=== PATIENT | female | born 1990 | race American Indian/Alaskan Native ===

== ENCOUNTER 2017-04-28 01:18 | Emergency (ER) | payer OTHER ==
[2017-04-28 01:38] VITALS: BP 145/97; PULSE 92; RESP 16; TEMP 99; O2SAT 100
--- NOTE | 2017-04-28 02:14 | C.PDOC ---
Time Seen by Provider: 04/28/17 02:06 Chief Complaint (Nursing): Headache Past Medical History Vital Signs: Last Vital Signs Temp 99 F 04/28/17 01:27 Pulse 92 H 04/28/17 01:27 Resp 16 04/28/17 01:27 BP 145/97 H 04/28/17 01:27 Pulse Ox 100 04/28/17 01:27 - Social History Hx Alcohol Use: No Hx Substance Use: No - Immunization History Hx Influenza Vaccination: No Hx Pneumococcal Vaccination: No ED Course And Treatment O2 Sat by Pulse Oximetry: 100
--- NOTE | 2017-04-28 02:25 | C.PDOC ---
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 pt sts she wasn't feeling well all day, and fainted when walking to the bathroom. pt now c/o pain to head and left side face and neck. no chest pain or sob. pt just moved to [place] one week ago. not currently getting chemo or radiation. Time Seen by Provider: 04/28/17 02:06 Chief Complaint (Nursing): Headache History Per: Patient History/Exam Limitations: no limitations Onset/Duration Of Symptoms: Hrs (2) Current Symptoms Are (Timing): Still Present Severity: Moderate Quality: "Pain" Preceeding Symptoms: Other (syncope) Associated Symptoms: Extremity Weakness. denies: Blurred Vision, Nausea, Vomiting Recent travel outside of the [place]: No Past Medical History Reviewed: Historical Data, Nursing Documentation, Vital Signs Vital Signs: Last Vital Signs Temp 99 F 04/28/17 01:27 Pulse 92 H 04/28/17 01:27 Resp 16 04/28/17 01:27 BP 145/97 H 04/28/17 01:27 Pulse Ox 100 04/28/17 04:11 - Medical History Other PMH: nasopharygeal carcinoma Other Surgeries: nasal sx for carcinoma Family History: States: Unknown Family Hx - Social History Hx Tobacco Use: No Hx Alcohol Use: No Hx Substance Use: No - Immunization History Hx Influenza Vaccination: No Hx Pneumococcal Vaccination: No Review Of Systems Constitutional: Positive for: Fever (subjective) Eyes: Negative for: Pain, Conjunctivae Inflammation ENT: Negative for: Ear Pain, Nose Pain Cardiovascular: Negative for: Chest Pain, Palpitations Respiratory: Negative for: Cough, Shortness of Breath Gastrointestinal: Negative for: Nausea, Vomiting Neurological: Positive for: Headache, Other (left face and neck pain) Physical Exam - Physical Exam Appears: Non-toxic, No Acute Distress (ambulating around ED in bare feet) Skin: Normal Color, Warm, Dry Head: Atraumatic, Normacephalic Eye(s): bilateral: Normal Inspection, PERRL, EOMI Neck: Normal ROM Cardiovascular: Rhythm Regular, No Murmur Respiratory: Normal Breath Sounds, No Rales, No Rhonchi, No Stridor Gastrointestinal/Abdominal: Soft, No Tenderness Neurological/Psych: Oriented x3, Normal Speech, Normal Cognition, Normal Motor ( left upper ext strenght 4.5/5), Normal Sensation Gait: Steady ED Course And Treatment O2 Sat by Pulse Oximetry: 100 Disposition - Disposition Disposition: ELOPEMENT - ER ONLY Disposition Time: 02:45 Condition: STABLE - Clinical Impression Clinical Impression: Headache, Syncope
[2017-04-28] MEDS ORDERED: Sodium Chloride 0.9% 1,000 ML IV ONE (02:27)
== END 2017-04-28 02:45 | disposition left against medical advice (07) ==
LOC: C.ER 01:18
DX: R55 Syncope and collapse (principal); R51 Headache